=== PATIENT | female | born 1950 | race Caucasian/White ===

== ENCOUNTER 2019-02-01 22:56 | Emergency (ER) | payer OTHER ==
[~2019-02-01] VITALS: Ht 160 cm; Wt 80.3 kg
[2019-02-01 23:17] VITALS: BP 150/81; Ht 160 cm; Wt 80.3 kg
== END 2019-02-02 02:26 | disposition left against medical advice (07) ==
LOC: ED 22:56
DX: Z53.21 Procedure and treatment not carried out due to patient leaving prior to being seen by health care provider (principal)

== ENCOUNTER 2019-02-02 12:34 | Emergency (ER) | payer OTHER ==
[~2019-02-02] VITALS: Ht 160 cm; Wt 77.1 kg
[2019-02-02 12:55] VITALS: Ht 160 cm; Wt 77.1 kg
[2019-02-02 13:54] LABS: BASOPHIL % 0.2 % (0-2); PLATELET COUNT 273 x10^3mcL (130-400); RED CELL DISTRIBUTION WIDTH 13.1 % (11.5-14.5)
[2019-02-02 14:24] LABS: microscopic required? NO
[2019-02-02 14:25] LABS: ALBUMIN 3.6 g/dL (3.4-5.0); ALKALINE PHOSPHATASE 96 U/L (46-116); ALT/SGPT 79 U/L (14-59); AST/SGOT 35 U/L (15-37); BILIRUBIN TOTAL 0.34 mg/dL (0.20-1.00); CALCIUM 8.5 mg/dL (8.5-10.1); CARBON DIOXIDE 25.7 mmol/L (21-32); CHLORIDE SERUM 104 mmol/L (98-107); CREATININE SERUM 0.8 mg/dL (0.6-1.0); GFR1 > 60 mL/min; GLUCOSE SERUM 118 mg/dL (74-106); POTASSIUM SERUM 3.6 mmol/L (3.5-5.1); SODIUM SERUM 139 mmol/L (136-145); TOTAL PROTEIN, SERUM 7.2 g/dL (6.4-8.2)
[2019-02-02 14:34] LABS: UA SPECIFIC GRAVITY 1.015 (1.005-1.035); urine erythrocyte NEGATIVE (NEGATIVE)
[2019-02-02 17:27] VITALS: BP 147/78
== END 2019-02-02 17:27 | disposition home or self-care (01) ==
LOC: ED 12:34
PROVIDERS: Emergency Medicine
DX: K80.20 Calculus of gallbladder without cholecystitis without obstruction (principal); R11.2 Nausea with vomiting, unspecified; Z88.5 Allergy status to narcotic agent; Z85.3 Personal history of malignant neoplasm of breast
CPT/HCPCS: C9113; J2270; J2405; J7030; Q0092